=== PATIENT | male | born 1940 | race Caucasian/White ===

== ENCOUNTER → 2018-09-30 | Outpatient (CLI) | payer MEDICARE, BC | END | disposition home or self-care (01) | LOC: CFH 07:24 | PROVIDERS: ATTEND Internal Medicine Cardiovascular Disease | DX: I21.29 ST elevation (STEMI) myocardial infarction involving other sites (principal); I45.10 Unspecified right bundle-branch block; I25.10 Atherosclerotic heart disease of native coronary artery without angina pectoris; I35.1 Nonrheumatic aortic (valve) insufficiency | CPT/HCPCS: 78452; 93017; A9502 ==

== ENCOUNTER → 2019-10-06 | Outpatient (CLI) | payer MEDICARE, BC | END | disposition home or self-care (01) | LOC: CFH 07:38 | PROVIDERS: ATTEND Internal Medicine Cardiovascular Disease | DX: I08.1 Rheumatic disorders of both mitral and tricuspid valves (principal); I25.10 Atherosclerotic heart disease of native coronary artery without angina pectoris | CPT/HCPCS: 93306 ==

== ENCOUNTER → 2021-02-08 | Outpatient (CLI) | payer MEDICARE, BC ==
[~2021-02-08] MED LIST: ACET325T26 PO; ASCO100018 PO; ASPI-963 PO; ATOR40TA78 PO; CEFD300C37 PO; DIVA-61 PO; DONE10TA14 PO; FAMO20TA7 PO; INSU100I13 SQ-INSULIN; INSU100I18 SQ; INSU300I SQ; LATA7.5D EACHEYE; LOSA100T14 PO; LOSA25TA25 PO; METF500T17 PO; METO200T47 PO; NITR0.4T41 SL; TAMS-11 PO; UBID100C41 PO
== END | disposition home or self-care (01) ==
LOC: RAD 10:08
DX: S06.5X0A Traumatic subdural hemorrhage without loss of consciousness, initial encounter (principal); X58.XXXA Exposure to other specified factors, initial encounter; Y93.89 Activity, other specified; Y92.89 Other specified places as the place of occurrence of the external cause; Y99.8 Other external cause status
CPT/HCPCS: 70450

== ENCOUNTER → 2021-03-10 | Outpatient (CLI) | payer MEDICARE, BC ==
[2021-03-10 10:59] LABS: % IRON SATURATION 41 % (20-55); IRON LEVEL 113 mcg/dL (65-175); TOTAL IRON BINDING CAPACITY 278 mcg/dL (250-450)
== END | disposition home or self-care (01) ==
LOC: LAB 10:01
PROVIDERS: ATTEND Internal Medicine
DX: D50.9 Iron deficiency anemia, unspecified (principal)
CPT/HCPCS: 36415; 80164; 83540; 83550

== ENCOUNTER → 2021-03-10 | Outpatient (CLI) | payer MEDICARE, BC | END | disposition home or self-care (01) | LOC: RAD 09:59 | PROVIDERS: ATTEND Nurse Practitioner Family | DX: G31.9 Degenerative disease of nervous system, unspecified (principal); J34.89 Other specified disorders of nose and nasal sinuses; I61.9 Nontraumatic intracerebral hemorrhage, unspecified; I62.01 Nontraumatic acute subdural hemorrhage | CPT/HCPCS: 70450 ==